=== PATIENT | female | born 1945 | race Caucasian/White ===

== ENCOUNTER 2022-01-23 06:07 | Day surgery (SDC) | payer MEDICARE, OTHER ==
[2022-01-21 10:54] LABS: COVID AG,FIA SOURCE NASOPHARYNGEAL
[~2022-01-23] VITALS: Ht 167.6 cm; Wt 82.0 kg
[~2022-01-23 06:07] MED LIST: ATEN1TAB3 PO; CITA-144 PO; DULA0.75 SQ; FOLI-130 PO; HYDR200T4 PO; KETOROLAC TROMETHAMINE 0.5% 5 ML OPHTHALMIC SOLUTION ONE; LEVO75 PO; LOSA100T58 PO; METF-1211 PO; METH2.5 PO; MOXIFLOXACIN HCL 0.5% 3 ML OPHTHALMIC SOLUTION ONE; PANT-31 PO; PHENYLEPHRINE HCL 2.5% 2 ML OPHTHALMIC SOLUTION ONE; RINGERS SOLUTION,LACTATED 500 ML IV ONE; SULF500EC PO; TROPICAMIDE 1% 2 ML OPHTHALMIC SOLUTION ONE
[2022-01-23] MEDS ORDERED: EPINEPHrine 1:1,000 [1 MG/ML] VIAL IM ONE (06:08)
[2022-01-23] MEDS ORDERED: TETRACAINE HCL/PF 0.5% 4 ML OPHTHALMIC SOLUTION OU ONE (06:08)
[2022-01-23] MEDS ORDERED: BALANCED SALT 15 ML OPHTHALMIC IRRIG.SOLN OU ONE (06:08)
[2022-01-23] MEDS ORDERED: CHONDR SULF A SOD/HYALURONATE 1.05 ML KIT IO ONE (06:08)
[2022-01-23] MEDS ORDERED: LIDOCAINE/PF 1% 2 ML VIAL IM ONE (06:08)
[2022-01-23] MEDS ORDERED: POVIDONE-IODINE 10% 15 ML SOLUTION UD TP ONE (06:08)
[2022-01-23] MEDS: MOXIFLOXACIN HCL 0.5% 3 ML OPHTHALMIC SOLUTION OS SCH ×3 (06:40→06:51)
[2022-01-23] MEDS: TROPICAMIDE 1% 2 ML OPHTHALMIC SOLUTION OS SCH ×3 (06:40→06:51)
[2022-01-23] MEDS: KETOROLAC TROMETHAMINE 0.5% 5 ML OPHTHALMIC SOLUTION OS SCH ×3 (06:40→06:51)
[2022-01-23] MEDS: PHENYLEPHRINE HCL 2.5% 2 ML OPHTHALMIC SOLUTION OS SCH ×3 (06:40→06:51)
[2022-01-23 07:01] LABS: GLUCOMETER DEV NAME(LOC) SDS.; GLUCOSE,POINT OF CARE 126 MG/DL (70-110)
[2022-01-23] MEDS ORDERED: MIDAZOLAM HCL 2 MG/2 ML VIAL IVP ONE (12:00)
[2022-01-23] MEDS ORDERED: FentaNYL CITRATE PF 100 MCG/2 ML VIAL IVP ONE (12:00)
== END 2022-01-23 09:00 | disposition home or self-care (01) ==
LOC: SURGERY 06:07
PROVIDERS: ATTEND Ophthalmology
DX: E11.36 Type 2 diabetes mellitus with diabetic cataract (principal); H25.12 Age-related nuclear cataract, left eye; I10 Essential (primary) hypertension; Z79.899 Other long term (current) drug therapy; Z87.01 Personal history of pneumonia (recurrent); Z98.890 Other specified postprocedural states
CPT/HCPCS: 93005; 87426; 66984; 82962; C9803; J0171; J3010; J3490; J2250; Q9967; J7120; V2632

== ENCOUNTER 2022-09-18 09:33 | Day surgery (SDC) | payer MEDICARE, OTHER ==
[2022-09-16 14:15] LABS: COVID AG,FIA SOURCE NASAL SWAB
[~2022-09-18] VITALS: Ht 165.1 cm; Wt 81.2 kg
[~2022-09-18 09:33] MED LIST changes: +ATEN-72 PO; -ATEN1TAB3 PO; -DULA0.75 SQ; +DULA1.5P SQ; -LEVO75 PO; +LEVO88TA7 PO; -METF-1211 PO; +METF-81 PO; +OMEP20CA12 PO; -PANT-31 PO
[2022-09-18] MEDS ORDERED: LIDOCAINE/PF 1% 2 ML VIAL CAUDAL ONE ×2 (09:34)
[2022-09-18] MEDS ORDERED: TETRACAINE HCL/PF 0.5% 4 ML OPHTHALMIC SOLUTION OD ONE (09:34)
[2022-09-18] MEDS ORDERED: CHONDR SULF A SOD/HYALURONATE 1.05 ML KIT IO ONE ×2 (09:34)
[2022-09-18] MEDS ORDERED: POVIDONE-IODINE 5% 30 ML OPHTHALMIC SOLUTION OD ONE ×2 (09:34)
[2022-09-18] MEDS ORDERED: EPINEPHrine 1:1,000 [1 MG/ML] VIAL ET ONE ×2 (09:34)
[2022-09-18] MEDS ORDERED: BALANCED SALT 15 ML OPHTHALMIC IRRIG.SOLN IO ONE ×2 (09:34)
[2022-09-18] MEDS: PHENYLEPHRINE HCL 2.5% 2 ML OPHTHALMIC SOLUTION OD SCH ×3 (10:00→10:10)
[2022-09-18] MEDS: MOXIFLOXACIN HCL 0.5% 3 ML OPHTHALMIC SOLUTION OD SCH ×3 (10:00→10:10)
[2022-09-18] MEDS: KETOROLAC TROMETHAMINE 0.5% 5 ML OPHTHALMIC SOLUTION OD SCH ×3 (10:00→10:10)
[2022-09-18] MEDS: TROPICAMIDE 1% 2 ML OPHTHALMIC SOLUTION OD SCH ×3 (10:00→10:10)
[2022-09-18 10:21] LABS: GLUCOMETER DEV NAME(LOC) SDS.; GLUCOSE,POINT OF CARE 100 MG/DL (70-110)
== END 2022-09-18 11:35 | disposition home or self-care (01) ==
LOC: SURGERY 09:33
PROVIDERS: ATTEND Ophthalmology
DX: E11.36 Type 2 diabetes mellitus with diabetic cataract (principal); H25.11 Age-related nuclear cataract, right eye; H25.12 Age-related nuclear cataract, left eye; M06.9 Rheumatoid arthritis, unspecified; I10 Essential (primary) hypertension; E66.3 Overweight; F32.A Depression, unspecified; Z72.89 Other problems related to lifestyle; Z87.01 Personal history of pneumonia (recurrent); Z98.51 Tubal ligation status; Z98.890 Other specified postprocedural states; Z79.899 Other long term (current) drug therapy
CPT/HCPCS: 93005; 87426; 66984; 82962; C9803; J0171; J3490; Q9967; V2632